=== PATIENT | male | born 1985 | race American Indian/Alaskan Native ===

== ENCOUNTER 2018-04-22 16:17 | Inpatient (IN) | payer SELFPAY ==
[2018-04-22 13:47] LABS: Basophils # (Auto) 0.1 K/mm3 (0.0-0.1); Basophils % (Auto) 0.6 % (0.0-1.8); Eosinophils % (Auto) 0.1 % (0.0-4.3); Hematocrit 39.9 % (35.5-45.6); Hemoglobin 13.1 gm/dl (11.8-15.2); Lymphocytes # (Auto) 1.5 K/mm3 (1.2-5.4); Lymphocytes % (Auto) 11.6 % (13.4-35.0); Mean Corpuscular HGB Conc 33 % (32-34); Mean Corpuscular Hemoglobin 32 pg (28-32); Mean Corpuscular Volume 96 fl (84-94); Monocytes # (Auto) 0.6 K/mm3 (0.0-0.8); Monocytes % (Auto) 4.5 % (0.0-7.3); Platelet Count 239 K/mm3 (140-440); Red Blood Count 4.16 M/mm3 (3.65-5.03); Red Cell Distribution Width 13.3 % (13.2-15.2)
[2018-04-22 14:06] LABS: BUN/Creatinine Ratio 13; Blood Urea Nitrogen 10 mg/dL (9-20); Calcium 8.8 mg/dL (8.4-10.2); Hemolysis Index 42; Lipase 24 units/L (13-60)
[2018-04-22 14:08] LABS: Alanine Aminotransferase 11 units/L (7-56); Albumin 3.8 g/dL (3.9-5)
[2018-04-22 14:13] LABS: Bilirubin,Direct < 0.2 mg/dL (0-0.2)
--- NOTE | 2018-04-22 14:43 | Emergency Department Report ---
ED Abdominal Pain HPI - General Chief Complaint: Abdominal Pain Stated Complaint: ABDOMINAL PAIN Time Seen by Provider: 04/22/18 12:25 Source: EMS Mode of arrival: Wheelchair Limitations: No Limitations - History of Present Illness Initial Comments: 32-year-old male past medical history? IBS presents with acute onset of epigastric pain this morning with associated nausea and vomiting. Patient is in severe distress states he has severe abdominal pain and has vomited more than 6 times since this morning. Accompanied by girlfriend at bedside. Awake alert and oriented 3. Patient is verbally agitated. MD Complaint: abdominal pain -: This morning Location: periumbilical Migration to: periumbilical Severity scale (0 -10): 6 Quality: aching, sharp Consistency: constant Associated Symptoms: nausea, vomiting - Related Data Allergies Allergy/AdvReac Type Severity Reaction Status Date / Time No Known Allergies Allergy Unverified 04/22/18 12:14 ED Review of Systems ROS: Stated complaint: ABDOMINAL PAIN Other details as noted in HPI Constitutional: denies: chills, fever Eyes: denies: eye pain, eye discharge, vision change ENT: denies: ear pain, throat pain Respiratory: denies: cough, shortness of breath, wheezing Cardiovascular: denies: chest pain, palpitations Endocrine: no symptoms reported Gastrointestinal: abdominal pain, nausea. denies: diarrhea Genitourinary: denies: urgency, dysuria Musculoskeletal: denies: back pain, joint swelling, arthralgia Skin: denies: rash, lesions Neurological: denies: headache, weakness, paresthesias Psychiatric: denies: anxiety, depression Hematological/Lymphatic: denies: easy bleeding, easy bruising ED Past Medical Hx - Past Medical History Hx Asthma: Yes - Surgical History Past Surgical History?: No - Social History Smoking Status: Current Every Day Smoker Substance Use Type: None ED Physical Exam - General Limitations: No Limitations General appearance: alert, in no apparent distress - Head Head exam: Present: atraumatic, normocephalic - Eye Eye exam: Present: normal appearance, PERRL, EOMI - ENT ENT exam: Present: mucous membranes moist - Neck Neck exam: Present: normal inspection - Respiratory Respiratory exam: Present: normal lung sounds bilaterally. Absent: respiratory distress - Cardiovascular Cardiovascular Exam: Present: regular rate, normal rhythm. Absent: systolic murmur, diastolic murmur, rubs, gallop - GI/Abdominal GI/Abdominal exam: Present: tenderness, guarding, rebound, rigid, normal bowel sounds - Rectal Rectal exam: Present: deferred - Extremities Exam Extremities exam: Present: normal inspection - Back Exam Back exam: Present: normal inspection - Neurological Exam Neurological exam: Present: alert, oriented X3 - Psychiatric Psychiatric exam: Present: normal affect, normal mood - Skin Skin exam: Present: warm, dry, intact, normal color. Absent: rash ED Course Vital Signs 04/22/18 04/22/18 12:11 14:14 Temperature 98 F Pulse Rate 64 Respiratory 20 16 Rate Blood Pressure 117/69 O2 Sat by Pulse 96 Oximetry ED Medical Decision Making - Lab Data Result diagrams: 04/22/18 12:53 04/22/18 12:53 - Medical Decision Making A/P: Acute abdomen, small bowel obstruction 1-is discussed with on-call surgeon Dr. Lindsey and ED attending Dr. Gonzalez 2-nothing by mouth 3-IV analgesia IV fluid IV antiemetics 4- patient to be admitted Critical care attestation.: If time is entered above; I have spent that time in minutes in the direct care of this critically ill patient, excluding procedure time. ED Disposition Clinical Impression: Small bowel obstruction Disposition: 09 OP ADMIT IP TO THIS HOSP Is pt being admited?: No Does the pt Need Aspirin: No Condition: Stable Referrals: PRIMARY CARE, [Primary Care Provider] - 3-5 Days
--- NOTE | 2018-04-22 15:14 | Cat Scan Report ---
CT ABDOMEN PELVIS WITH CONTRAST: HISTORY: Severe abdominal pain. COMPARISON: none. TECHNIQUE: Helical CT in 1.25mm intervals following IV contrast. Sagittal and coronal reconstructions. FINDINGS: Lung bases: Normal. Liver: Normal. Biliary system: Normal. Pancreas: Normal. Spleen: Normal. Kidneys/ureters/bladder: Normal. Adrenal glands: Normal. Aorta: Normal. Intestines: No oral contrast was administered which limits this exam. There is suggestion of 1 or 2 loops of dilated small bowel in the left lower quadrant and pelvis. These small bowel loops measure up to 3.5 cm in diameter. The remaining small bowel loops and colon are decompressed and unremarkable. This pattern is concerning for a closed loop small bowel obstruction. There is no evidence for significant small bowel wall thickening or pneumatosis. No free air is identified. Appendix: Normal. Pelvic viscera: Small to medium pelvic ascites. Ascites: Small to medium pelvic ascites. Adenopathy: None. Musculoskeletal: Normal. IMPRESSION: Findings concerning for a closed loop small bowel obstruction as outlined above. Recommend consultation with the surgeon. These findings were discussed with Vance Vieira in the emergency department at 1500 hrs.
--- NOTE | 2018-04-22 15:15 | Emergency Department Report ---
Blank Doc - Documentation Documentation: I performed a [id number] evaluation with this patient. I agree with the mentation in the history and physical by the MELODIE. Patient's arrives and substantial amount of pain mostly in the epigastrium. Patient had lab work and CT shows a small bowel obstruction. Patient will be admitted to the hospital at this time.
--- NOTE | 2018-04-22 15:57 | History and Physical Report ---
ADMITTING DIAGNOSIS: Acute abdomen, rule out closed loop obstruction. HISTORY OF PRESENT ILLNESS: The patient is a 32-year-old gentleman, who presented to the Emergency Room with recent onset of nausea, vomiting and what he describes as " abdominal pain. PAST MEDICAL HISTORY: Pertinent for asthma. PAST SURGICAL HISTORY: Negative. ALLERGIES: No known allergies. MEDICATIONS: No medications. FAMILY HISTORY: Negative. SOCIAL HISTORY: Smokes a pack a day for approximately 21 years. Also, has been smoking marijuana since the age of 12 and takes codeine. The patient states he survey years in assisted and has just recently was released. PHYSICAL EXAMINATION: VITAL SIGNS: Shows the patient to be afebrile with a temperature of 98, blood pressure 117/69, pulse of 64, respirations 20. HEENT: Pupils are equal and reactive to light and accommodation. Sclerae nonicteric. NECK: Supple, no thyromegaly or adenopathy. CHEST: Lungs clear to auscultation and percussion. HEART: Normal sinus rhythm. No gross murmurs. ABDOMEN: Examination of the abdomen reveals to be distended and severely tender. There is rebound and guarding noted. Bowel sounds are absent. EXTREMITIES: Show full range of motion, no edema or cyanosis. NEUROLOGIC: Grossly within normal limits. LABORATORY DATA: Lab work at present includes CBC, which shows a white count of 13.2, H and H is 13 and 39. Lactic acid is noted to be elevated at 2.4. Electrolytes are essentially within normal limits. Lipase is normal at 24. LFTs are also normal. A CT scan of the abdomen has been performed, which I have reviewed with the radiologist. Findings are consistent with a closed loop small-bowel obstruction. IMPRESSION: At this time is that of a 32-year-old gentleman with severe abdominal pain, rule out closed loop obstruction. PLAN: To proceed with emergency exploratory laparotomy, possible bowel resection. Risk indication and complications have been reviewed with the patient, who understands and signed his consent. JOB# [id number] FP/NTS
[~2018-04-22 16:17] MED LIST: BENADRYL IV ONE; DILAUDID IV ONE; DIPRIVAN 10 MG/ML IV ONE; LACTATED RINGERS 1,000 ML IV ONE; NACL 0.9% 1000 ML 1,000 ML IV ONE; NACL 0.9% IR ONE; QUELICIN ONE; SUBLIMAZE ONE; XYLOCAINE MPF 2% ONE; ZEMURON IV ONE; ZOFRAN IV ONE; ZOSYN/NS 4.5GM/100ML 4.5 GM/100 ML VIAL IV SCH
--- NOTE | 2018-04-22 16:34 | Anesthesia Consultation ---
Anesthesia Consult and Med Hx Date of service: 04/22/18 - Airway Anesthetic Teeth Evaluation: Good ROM Head & Neck: Adequate Mental/Hyoid Distance: Adequate Mallampati Class: Class II Intubation Access Assessment: Probably Good - Pulmonary Exam CTA: Yes - Cardiac Exam Cardiac Exam: RRR - Pre-Operative Health Status ASA Pre-Surgery Classification: ASA2 Proposed Anesthetic Plan: General - Pulmonary Hx Smoking: Yes (Admits to every day use) Hx Asthma: Yes (last inhaler ~1 month ago) - Other Systems Hx Substance Use: Yes (Smokes marijuana. Admits to codeine use for migranes.) - Additional Comments Anesthesia Medical History Comments: No previous anesthesia. Denies family hx of complications.
--- NOTE | 2018-04-22 16:35 | Anesthesia Day of Surgery ---
Anesthesia Day of Surgery - Day of Surgery Patient Examined: Yes Patient H&P Reviewed: Yes Patient is NPO: Yes
[2018-04-22] MEDS ORDERED: VERSED IV PRN (16:36)
[2018-04-22 16:51] LABS: Amphetamine Screen,Urine PRESUMPTIVE NEGATIVE; Benzodiazepines Screen,Urine PRESUMPTIVE NEGATIVE; Cocaine Screen,Urine PRESUMPTIVE NEGATIVE; Methadone Screen,Urine PRESUMPTIVE NEGATIVE; Opiate Screen,Urine PRESUMPTIVE NEGATIVE
[2018-04-22 17:00] LABS: Bilirubin,Urine NEG (Negative); Blood,Urine NEG (Negative); Color,Urine Yellow (Yellow); Mucus,Urine FEW /HPF; Protein,Urine <15 mg/dL mg/dL (Negative); Urobilinogen,Urine < 2.0 mg/dL (<2.0)
[2018-04-22] MEDS ORDERED: PEPCID IV NR (17:00)
[2018-04-22 17:10] LABS: Cannabinoid Screen,Urine PRESUMPTIVE POSITIVE
[2018-04-22] MEDS ORDERED: NACL 0.9% 1000 ML 1,000 ML ONE (17:19)
[2018-04-22] MEDS ORDERED: ZOFRAN ONE (17:36)
[2018-04-22] MEDS ORDERED: ROBINUL ONE ×2 (17:46→18:13)
[2018-04-22] MEDS ORDERED: BLOXIVERZ ONE ×2 (17:46→18:13)
--- NOTE | 2018-04-22 18:25 | Operative Report ---
PREOPERATIVE DIAGNOSIS: Rule out closed loop small-bowel obstruction. 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 PROCEDURE: Emergency exploratory laparotomy, lysis of offending band causing obstruction. SURGEON: Frank Lindsey MD. ANESTHESIA: General. ESTIMATED BLOOD LOSS: Minimal. DRAINS: None. COMPLICATIONS: None. DESCRIPTION OF PROCEDURE: The patient was taken to the operating room, prepped and draped in usual fashion. A midline incision was made and abdomen entered. Upon entrance into the abdomen, the proximal bowel was noted to be collapsed. The bowel continued to be run until the mid portion of the small bowel was noted to be looped secondary to an offending band and dissection of the bowel was all dilated, but fortunately not ischemic or compromised. The band was lysed and the bowel untwisted. The rest of the bowel was then followed distally, which was also collapsed down to the cecum. The entire abdomen was then irrigated copiously and dried. Checked for hemostasis and noted to be dry. The small bowel was again run in its entirety from ligament of Treitz down to the cecum. No other sources of obstruction or pathology were noted. NG tube was palpated within the gastric lumen and left in place. The fascia was then closed with interrupted #1 Vicryl suture. Subcutaneous tissues irrigated and skin closed with virgie. The patient tolerated the procedure well and left OR in stable condition. JOB# [id number] SHI/NIKI
[2018-04-22] MEDS: DILAUDID IV PRN ×4 (18:50→20:47)
[2018-04-22] MEDS: D5W/0.45% NACL/KCL 30 MEQ 30 MEQ/1,000 ML BAG IV SCH (19:41)
[2018-04-23] MEDS: MORPHINE IV PRN ×4 (04:31→19:37)
[2018-04-23] MEDS: PEPCID IV SCH ×3 (06:25→21:42)
[2018-04-23 06:50] LABS: Basophils % (Auto) 0.2 % (0.0-1.8); Eosinophils % (Auto) 0.1 % (0.0-4.3); Hematocrit 42.9 % (35.5-45.6); Hemoglobin 14.2 gm/dl (11.8-15.2); Lymphocytes # (Auto) 1.1 K/mm3 (1.2-5.4); Lymphocytes % (Auto) 7.3 % (13.4-35.0); Mean Corpuscular HGB Conc 33 % (32-34); Mean Corpuscular Hemoglobin 32 pg (28-32); Mean Corpuscular Volume 96 fl (84-94); Monocytes % (Auto) 6.4 % (0.0-7.3); Platelet Count 238 K/mm3 (140-440); Red Blood Count 4.47 M/mm3 (3.65-5.03); Red Cell Distribution Width 13.3 % (13.2-15.2)
[2018-04-23 07:14] LABS: BUN/Creatinine Ratio 6; Blood Urea Nitrogen 5 mg/dL (9-20); Calcium 9.1 mg/dL (8.4-10.2); Hemolysis Index 19
[2018-04-23] MEDS ORDERED: PROVENTIL IH PRN (11:20)
--- NOTE | 2018-04-23 11:21 | Consultation ---
History of Present Illness - Reason for Consult Consult date: 04/23/18 Asthma Requesting physician: SAIRA LINDSEY - History of Present Illness Patient is 32 yo with history of asthma, substance abuse. patient presented with nausea, vomiting, abdominal pain. He was diagnosed with bowel obstruction. He had exploratory lap surgery for midgut closed loop obstruction yesterday, , and hospitalist consulted for medical management of asthma and substance abuse. He is post-op. He complains of mild abdominal pain. No shortness of breath currently. No chest pain, no fever. Past History Past Medical History: other (asthma) Past Surgical History: bowel surgery Social history: single, lives with family, smoking (1 pack a day), full code, other (Marijuana use). denies: alcohol abuse Family history: cancer Medications and Allergies Allergies Allergy/AdvReac Type Severity Reaction Status Date / Time No Known Allergies Allergy Verified 04/22/18 16:53 Home Medications Medication Instructions Recorded Confirmed Last Taken Type ALBUTEROL Inhaler [Proair] 2 puff IH QID PRN 04/22/18 04/22/18 1 Month Ago History ~03/22/18 Active Meds: Active Medications Albuterol (Proventil) 2.5 mg IH Q4HRT PRN PRN Reason: Shortness Of Breath Famotidine (Pepcid) 20 mg IV BID KIM Last Admin: 04/23/18 10:59 Dose: 20 mg Piperacillin Sod/Tazobactam Sod (Zosyn/Ns 4.5gm/100ml) 4.5 gm in 100 mls @ 200 mls/hr IV ONCE KIM Last Admin: 04/22/18 15:44 Dose: 200 mls/hr Sodium Chloride (Nacl 0.9% 1000 Ml) 1,000 mls @ 42 mls/hr IV DIRECT KIM Potassium Chloride/Dextrose/Sod Cl (D5w/0.45% Nacl/Kcl 30 Meq) 30 meq in 1,000 mls @ 125 mls/hr IV DIRECT KIM Last Admin: 04/22/18 19:41 Dose: 125 mls/hr Morphine Sulfate (Morphine) 4 mg IV Q3H PRN PRN Reason: Pain, Moderate (4-6) Stop: 04/26/18 17:50 Last Admin: 04/23/18 10:58 Dose: 4 mg Ondansetron HCl (Zofran) 4 mg IV Q4H PRN PRN Reason: N/V unrelieved by Reglan Review of Systems All systems: negative (No fever, no headache,no urinary symptoms. All other systems reviewed and are negative) Exam - Physical Exam Narrative exam: Gen : Not in acute distress, lying in bed HEENT:Normocephalic, atraumatic Neck: supple, No JVD Lungs:Clear to auscultation bilaterally,no crackles, no wheeze Heart :S1 and S2 reg, no murmurs, rubs or gallop Abd:soft, tender, surgical wound covered by abdominal binder, bowel sounds Ext: No edema, no clubbing, no cyanosis Neuro: Awake,alert,oriented x 3, no focal signs - Constitutional Vitals: Temp Pulse Resp BP Pulse Ox 99.3 F 55 L 17 114/74 100 04/23/18 07:30 04/23/18 07:30 04/23/18 10:00 04/23/18 07:30 04/23/18 07:30 Results - Labs CBC & Chem 7: 04/25/18 05:13 04/25/18 05:13 Labs: Abnormal lab results 04/22/18 04/22/18 04/22/18 Range/Units 12:53 12:53 12:53 WBC 13.2 H (4.5-11.0) K/mm3 MCV 96 H (84-94) fl Lymph % (Auto) 11.6 L (13.4-35.0) % Lymph # (1.2-5.4) K/mm3 [place] # (0.0-0.8) K/mm3 Seg Neutrophils % 83.2 H (40.0-70.0) % Seg Neutrophils # 11.0 H (1.8-7.7) K/mm3 Chloride 108.1 H (98-107) mmol/L BUN (9-20) mg/dL Glucose (75-100) mg/dL Lactic Acid 2.40 H* (0.7-2.0) mmol/L Albumin (3.9-5) g/dL Ur Specific [place] (1.003-1.030) 04/22/18 04/22/18 04/23/18 Range/Units 12:53 16:27 06:19 WBC 15.8 H (4.5-11.0) K/mm3 MCV 96 H (84-94) fl Lymph % (Auto) 7.3 L (13.4-35.0) % Lymph # 1.1 L (1.2-5.4) K/mm3 [place] # 1.0 H (0.0-0.8) K/mm3 Seg Neutrophils % 86.0 H (40.0-70.0) % Seg Neutrophils # 13.6 H (1.8-7.7) K/mm3 Chloride (98-107) mmol/L BUN (9-20) mg/dL Glucose (75-100) mg/dL Lactic Acid (0.7-2.0) mmol/L Albumin 3.8 L (3.9-5) g/dL Ur Specific [place] 1.047 H (1.003-1.030) 04/23/18 Range/Units 06:19 WBC (4.5-11.0) K/mm3 MCV (84-94) fl Lymph % (Auto) (13.4-35.0) % Lymph # (1.2-5.4) K/mm3 [place] # (0.0-0.8) K/mm3 Seg Neutrophils % (40.0-70.0) % Seg Neutrophils # (1.8-7.7) K/mm3 Chloride (98-107) mmol/L BUN 5 L (9-20) mg/dL Glucose 101 H (75-100) mg/dL Lactic Acid (0.7-2.0) mmol/L Albumin (3.9-5) g/dL Ur Specific [place] (1.003-1.030) Assessment and Plan Bowel obstruction s/p Exploratory laparotomy and lysis of offending band for midgut closed loop obstruction. Managed by Surgeon Asthma. This is stable currently Will give Albuterol prn Tobacco use. Nicotine patch if needed Substance abuse-Marijuana. I counseled him on importance of quitting Full code status Dr. Lindsey, thanks for consulting us
--- NOTE | 2018-04-23 13:07 | Progress Note ---
Assessment and Plan POD #1 Pt feeling well. c/o incisional pain Abd soft, dressings dry stable ambulation Selected Entries 04/23/18 11:30 Temperature 99.0 F Pulse Rate 51 L Respiratory 20 Rate Blood Pressure 129/76 [Left] Laboratory Tests 04/23/1818 06:19 06:19 WBC 15.8 H Hgb 14.2 Hct 42.9 Sodium 140 Potassium 4.4 Chloride 102.3 BUN 5 L Creatinine 0.8 Objective Vital Signs - 12hr 04/23/18 04/23/18 04/23/18 04:31 04:34 05:01 Temperature 99.2 F Pulse Rate 75 Respiratory 17 18 17 Rate Respiratory Rate [abd] Blood Pressure 139/63 [Left] O2 Sat by Pulse 100 Oximetry 04/23/18 04/23/18 04/23/18 07:30 10:00 11:28 Temperature 99.3 F Pulse Rate 55 L Respiratory 20 20 Rate Respiratory 17 Rate [abd] Blood Pressure 114/74 [Left] O2 Sat by Pulse 100 Oximetry 04/23/18 11:30 Temperature 99.0 F Pulse Rate 51 L Respiratory 20 Rate Respiratory Rate [abd] Blood Pressure 129/76 [Left] O2 Sat by Pulse 100 Oximetry - Labs 04/23/18 06:19 18 06:19 Diabetes panel 04/22/18 04/22/18 04/23/18 Range/Units 12:53 12:53 06:19 Sodium 144 140 (137-145) mmol/L Potassium 3.7 4.4 (3.6-5.0) mmol/L Chloride 108.1 H 102.3 (98-107) mmol/L Carbon Dioxide 22 26 (22-30) mmol/L BUN 10 5 L (9-20) mg/dL Creatinine 0.8 0.8 (0.8-1.5) mg/dL Glucose 91 101 H (75-100) mg/dL Calcium 8.8 9.1 (8.4-10.2) mg/dL AST 28 (5-40) units/L ALT 11 (7-56) units/L Alkaline Phosphatase 46 (35-129) units/L Total Protein 6.7 (6.3-8.2) g/dL Albumin 3.8 L (3.9-5) g/dL Calcium panel 04/22/18 04/22/1804/23/18 Range/Units 12:53 12:53 06:19 Calcium 8.8 9.1 (8.4-10.2) mg/dL Albumin 3.8 L (3.9-5) g/dL Pituitary panel 04/22/18 04/23/18 Range/Units 12:53 06:19 Sodium 144 140 (137-145) mmol/L Potassium 3.7 4.4 (3.6-5.0) mmol/L Chloride 108.1 H 102.3 (98-107) mmol/L Carbon Dioxide 22 26 (22-30) mmol/L BUN 10 5 L (9-20) mg/dL Creatinine 0.8 0.8 (0.8-1.5) mg/dL Glucose 91 101 H (75-100) mg/dL Calcium 8.8 9.1 (8.4-10.2) mg/dL Adrenal panel 04/22/18 04/22/18 04/23/18 Range/Units 12:53 12:53 06:19 Sodium 144 140 (137-145) mmol/L Potassium 3.7 4.4 (3.6-5.0) mmol/L Chloride 108.1 H 102.3 (98-107) mmol/L Carbon Dioxide 22 26 (22-30) mmol/L BUN 10 5 L (9-20) mg/dL Creatinine 0.8 0.8 (0.8-1.5) mg/dL Glucose 91 101 H (75-100) mg/dL Calcium 8.8 9.1 (8.4-10.2) mg/dL Total Bilirubin 0.20 (0.1-1.2) mg/dL AST 28 (5-40) units/L ALT 11 (7-56) units/L Alkaline Phosphatase 46 (35-129) units/L Total Protein 6.7 (6.3-8.2) g/dL Albumin 3.8 L (3.9-5) g/dL
[2018-04-24] MEDS: MORPHINE IV PRN ×4 (00:28→22:10)
[2018-04-24] MEDS: PEPCID IV SCH ×2 (10:24→22:11)
--- NOTE | 2018-04-24 13:12 | Progress Note ---
Assessment and Plan POD # 2 Pt status quo. "burping" neg flatus Abd soft. dressings dry neg BS stable continue present care Selected Entries 04/24/18 07:44 Temperature 98.6 F Pulse Rate 55 L Respiratory 18 Rate Blood Pressure 130/83 Objective Vital Signs - 12hr 04/24/18 04/24/18 04:59 07:44 Temperature 98.8 F 98.6 F Pulse Rate 61 55 L Respiratory 18 18 Rate Blood Pressure 137/71 130/83 O2 Sat by Pulse 98 100 Oximetry - Labs 04/23/18 06:19 04/23/18 06:19
[2018-04-24] MEDS ORDERED: CEPACOL X STRENGTH MM PRN (16:41)
--- NOTE | 2018-04-24 17:18 | Progress Note ---
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 Managed by Surgeon Asthma. Albuterol prn for shortness of breath Tobacco use. Nicotine patch if needed Substance abuse-Marijuana. I counseled him on importance of quitting Full code status History Interval history: Less abd pain NG tube to suction Hospitalist Physical - Physical exam Narrative exam: Gen : Not in acute distress, lying in bed HEENT:Normocephalic, atraumatic Neck: supple, No JVD Lungs:Clear to auscultation bilaterally,no crackles, no wheeze Heart :S1 and S2 reg, no murmurs, rubs or gallop Abd:soft, tender, surgical wound covered by abdominal binder, few bowel sounds Ext: No edema, no clubbing, no cyanosis Neuro: Awake,alert,oriented x 3, no focal signs - Constitutional Vitals: Temp Pulse Resp BP Pulse Ox 99.2 F 68 18 121/63 100 04/24/18 14:40 04/24/18 14:40 04/24/18 14:40 04/24/18 14:40 04/24/18 14:40 Results - Labs CBC & Chem 7: 04/25/18 05:13 04/25/18 05:13 Labs: Laboratory Last Values WBC 15.8 K/mm3 (4.5-11.0) H 04/23/18 06:19 RBC 4.47 M/mm3 (3.65-5.03) 04/23/18 06:19 Hgb 14.2 gm/dl (11.8-15.2) 04/23/18 06:19 Hct 42.9 % (35.5-45.6) 04/23/18 06:19 MCV 96 fl (84-94) H 04/23/18 06:19 MCH 32 pg (28-32) 04/23/18 06:19 MCHC 33 % (32-34) 04/23/18 06:19 RDW 13.3 % (13.2-15.2) 04/23/18 06:19 Plt Count 238 K/mm3 (140-440) 04/23/18 06:19 Lymph % (Auto) 7.3 % (13.4-35.0) L 04/23/18 06:19 [place] % (Auto) 6.4 % (0.0-7.3) 04/23/18 06:19 Eos % (Auto) 0.1 % (0.0-4.3) 04/23/18 06:19 Baso % (Auto) 0.2 % (0.0-1.8) 04/23/18 06:19 Lymph # 1.1 K/mm3 (1.2-5.4) L 04/23/18 06:19 [place] # 1.0 K/mm3 (0.0-0.8) H 04/23/18 06:19 Eos # 0.0 K/mm3 (0.0-0.4) 04/23/18 06:19 Baso # 0.0 K/mm3 (0.0-0.1) 04/23/18 06:19 Seg Neutrophils % 86.0 % (40.0-70.0) H 04/23/18 06:19 Seg Neutrophils # 13.6 K/mm3 (1.8-7.7) H 04/23/18 06:19 Sodium 140 mmol/L (137-145) 04/23/18 06:19 Potassium 4.4 mmol/L (3.6-5.0) 04/23/18 06:19 Chloride 102.3 mmol/L (98-107) 04/23/18 06:19 Carbon Dioxide 26 mmol/L (22-30) 04/23/18 06:19 Anion Gap 16 mmol/L 04/23/18 06:19 BUN 5 mg/dL (9-20) L 04/23/18 06:19 Creatinine 0.8 mg/dL (0.8-1.5) 04/23/18 06:19 Estimated GFR > 60 ml/min 04/23/18 06:19 BUN/Creatinine Ratio 6 % 04/23/18 06:19 Glucose 101 mg/dL (75-100) H 04/23/18 06:19 Lactic Acid 2.40 mmol/L (0.7-2.0) H* 04/22/18 12:53 Calcium 9.1 mg/dL (8.4-10.2) 04/23/18 06:19 Total Bilirubin 0.20 mg/dL (0.1-1.2) 04/22/18 12:53 Direct Bilirubin < 0.2 mg/dL (0-0.2) 04/22/18 12:53 Indirect Bilirubin 0.0 mg/dL 04/22/18 12:53 AST 28 units/L (5-40) 04/22/18 12:53 ALT 11 units/L (7-56) 04/22/18 12:53 Alkaline Phosphatase 46 units/L (35-129) 04/22/18 12:53 Total Protein 6.7 g/dL (6.3-8.2) 04/22/18 12:53 Albumin 3.8 g/dL (3.9-5) L 04/22/18 12:53 Albumin/Globulin Ratio 1.3 % 04/22/18 12:53 Lipase 24 units/L (13-60) 04/22/18 12:53 Urine Color Yellow (Yellow) 04/22/18 16:27 Urine Turbidity Clear (Clear) 04/22/18 16:27 Urine pH 7.0 (5.0-7.0) 04/22/18 16:27 Ur Specific [place] 1.047 (1.003-1.030) H 04/22/18 16:27 Urine Protein <15 mg/dl mg/dL (Negative) 04/22/18 16:27 Urine Glucose (UA) 50 mg/dL (Negative) 04/22/18 16:27 Urine Ketones Neg mg/dL (Negative) 04/22/18 16:27 Urine Blood Neg (Negative) 04/22/18 16:27 Urine Nitrite Neg (Negative) 04/22/18 16:27 Urine Bilirubin Neg (Negative) 04/22/18 16:27 Urine Urobilinogen < 2.0 mg/dL (<2.0) 04/22/18 16:27 Ur Leukocyte Esterase Neg (Negative) 04/22/18 16:27 Urine WBC (Auto) 2.0 /HPF (0.0-6.0) 04/22/18 16:27 Urine RBC (Auto) 5.0 /HPF (0.0-6.0) 04/22/18 16:27 U Epithel Cells (Auto) < 1.0 /HPF (0-13.0) 04/22/18 16:27 Urine Mucus Few /HPF 04/22/18 16:27 Urine Yeast (Budding) Few /HPF 04/22/18 16:27 Urine Opiates Screen Presumptive negative 04/22/18 16:30 Urine Methadone Screen Presumptive negative 04/22/18 16:30 Ur Barbiturates Screen Presumptive negative 04/22/18 16:30 Ur Phencyclidine Scrn Presumptive negative 04/22/18 16:30 Ur Amphetamines Screen Presumptive negative 04/22/18 16:30 U Benzodiazepines Scrn Presumptive negative 04/22/18 16:30 Urine Cocaine Screen Presumptive negative 04/22/18 16:30 U Marijuana (THC) Screen Presumptive positive 04/22/18 16:30 Drugs of Abuse Note Disclamer 04/22/18 16:30
[2018-04-25] MEDS: D5W/0.45% NACL/KCL 30 MEQ 30 MEQ/1,000 ML BAG IV SCH ×2 (04:58→22:56)
[2018-04-25] MEDS: MORPHINE IV PRN ×4 (05:40→22:52)
[2018-04-25 05:52] LABS: Basophils # (Auto) 0.1 K/mm3 (0.0-0.1); Basophils % (Auto) 0.7 % (0.0-1.8); Eosinophils % (Auto) 0.2 % (0.0-4.3); Hematocrit 44.5 % (35.5-45.6); Lymphocytes # (Auto) 1.7 K/mm3 (1.2-5.4); Lymphocytes % (Auto) 14.7 % (13.4-35.0); Mean Corpuscular HGB Conc 34 % (32-34); Mean Corpuscular Hemoglobin 32 pg (28-32); Mean Corpuscular Volume 95 fl (84-94); Monocytes # (Auto) 1.4 K/mm3 (0.0-0.8); Monocytes % (Auto) 12.2 % (0.0-7.3); Platelet Count 233 K/mm3 (140-440); Red Blood Count 4.68 M/mm3 (3.65-5.03); Red Cell Distribution Width 13.3 % (13.2-15.2)
[2018-04-25 06:19] LABS: Alanine Aminotransferase 12 units/L (7-56); Albumin 4.2 g/dL (3.9-5); BUN/Creatinine Ratio 16; Blood Urea Nitrogen 14 mg/dL (9-20); Calcium 9.7 mg/dL (8.4-10.2); Hemolysis Index 16
[2018-04-25] MEDS: PEPCID IV SCH ×2 (09:51→22:52)
--- NOTE | 2018-04-25 12:11 | Progress Note ---
Assessment and Plan POD # 3 Pt feeling well. neg flatus. ambulating down halls. ng 400 cc last 12 hrs Abd 1+ distention. non tender stable ileus continue present care Selected Entries 04/25/18 11:25 Temperature 98.6 F Pulse Rate 90 Respiratory 20 Rate Blood Pressure 139/81 [Left] Laboratory Tests 04/25/18 04/25/18 05:13 05:13 WBC 11.5 H Hgb 15.0 Hct 44.5 Sodium 139 Potassium 4.2 Chloride 97.1 L Carbon Dioxide 27 BUN 14 Creatinine 0.9 Objective Vital Signs - 12hr 04/25/18 04/25/18 04/25/18 04:59 07:42 11:25 Temperature 99.0 F 98.5 F 98.6 F Pulse Rate 92 H 79 90 Respiratory 16 18 20 Rate Blood Pressure 130/67 Blood Pressure 102/59 139/81 [Left] O2 Sat by Pulse 98 100 100 Oximetry - Labs 04/25/18 05:13 04/25/18 05:13 Diabetes panel 04/25/18 Range/Units 05:13 Sodium 139 (137-145) mmol/L Potassium 4.2 (3.6-5.0) mmol/L Chloride 97.1 L (98-107) mmol/L Carbon Dioxide 27 (22-30) mmol/L BUN 14 (9-20) mg/dL Creatinine 0.9 (0.8-1.5) mg/dL Glucose 97 (75-100) mg/dL Calcium 9.7 (8.4-10.2) mg/dL AST 28 (5-40) units/L ALT 12 (7-56) units/L Alkaline Phosphatase 53 (35-129) units/L Total Protein 7.5 (6.3-8.2) g/dL Albumin 4.2 (3.9-5) g/dL Calcium panel 04/25/18 Range/Units 05:13 Calcium 9.7 (8.4-10.2) mg/dL Albumin 4.2 (3.9-5) g/dL Pituitary panel 04/25/18 Range/Units 05:13 Sodium 139 (137-145) mmol/L Potassium 4.2 (3.6-5.0) mmol/L Chloride 97.1 L (98-107) mmol/L Carbon Dioxide 27 (22-30) mmol/L BUN 14 (9-20) mg/dL Creatinine 0.9 (0.8-1.5) mg/dL Glucose 97 (75-100) mg/dL Calcium 9.7 (8.4-10.2) mg/dL Adrenal panel 04/25/18 Range/Units 05:13 Sodium 139 (137-145) mmol/L Potassium 4.2 (3.6-5.0) mmol/L Chloride 97.1 L (98-107) mmol/L Carbon Dioxide 27 (22-30) mmol/L BUN 14 (9-20) mg/dL Creatinine 0.9 (0.8-1.5) mg/dL Glucose 97 (75-100) mg/dL Calcium 9.7 (8.4-10.2) mg/dL Total Bilirubin 0.70 (0.1-1.2) mg/dL AST 28 (5-40) units/L ALT 12 (7-56) units/L Alkaline Phosphatase 53 (35-129) units/L Total Protein 7.5 (6.3-8.2) g/dL Albumin 4.2 (3.9-5) g/dL
[2018-04-25] MEDS: NACL 0.9% 1000 ML 1,000 ML IV SCH ×2 (13:21→21:00)
--- NOTE | 2018-04-25 17:03 | Progress Note ---
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 Managed by Surgeon Ileus. He is NPO, iv fluids, NG tube Asthma. Albuterol prn for shortness of breath Tobacco use. Nicotine patch if needed Substance abuse-Marijuana. I counseled him on importance of quitting Full code status History Interval history: Less abd pain NG tube to suction, No fever Hospitalist Physical - Physical exam Narrative exam: Gen : Not in acute distress, lying in bed, NG tube HEENT:Normocephalic, atraumatic, NG tube Neck: supple, No JVD Lungs:Clear to auscultation bilaterally,no crackles, no wheeze Heart :S1 and S2 reg, no murmurs, rubs or gallop Abd:soft, tender, surgical wound covered by abdominal binder, few bowel sounds Ext: No edema, no clubbing, no cyanosis Neuro: Awake,alert,oriented x 3, no focal signs - Constitutional Vitals: Temp Pulse Resp BP Pulse Ox 98.6 F 86 20 128/60 100 04/25/18 16:35 04/25/18 16:35 04/25/18 16:35 04/25/18 16:35 04/25/18 16:35 Results - Labs CBC & Chem 7: 04/25/18 05:13 04/25/18 05:13 Labs: Laboratory Last Values WBC 11.5 K/mm3 (4.5-11.0) H 04/25/18 05:13 RBC 4.68 M/mm3 (3.65-5.03) 04/25/18 05:13 Hgb 15.0 gm/dl (11.8-15.2) 04/25/18 05:13 Hct 44.5 % (35.5-45.6) 04/25/18 05:13 MCV 95 fl (84-94) H 04/25/18 05:13 MCH 32 pg (28-32) 04/25/18 05:13 MCHC 34 % (32-34) 04/25/18 05:13 RDW 13.3 % (13.2-15.2) 04/25/18 05:13 Plt Count 233 K/mm3 (140-440) 04/25/18 05:13 Lymph % (Auto) 14.7 % (13.4-35.0) 04/25/18 05:13 [place] % (Auto) 12.2 % (0.0-7.3) H 04/25/18 05:13 Eos % (Auto) 0.2 % (0.0-4.3) 04/25/18 05:13 Baso % (Auto) 0.7 % (0.0-1.8) 04/25/18 05:13 Lymph # 1.7 K/mm3 (1.2-5.4) 04/25/18 05:13 [place] # 1.4 K/mm3 (0.0-0.8) H 04/25/18 05:13 Eos # 0.0 K/mm3 (0.0-0.4) 04/25/18 05:13 Baso # 0.1 K/mm3 (0.0-0.1) 04/25/18 05:13 Seg Neutrophils % 72.2 % (40.0-70.0) H 04/25/18 05:13 Seg Neutrophils # 8.3 K/mm3 (1.8-7.7) H 04/25/18 05:13 Sodium 139 mmol/L (137-145) 04/25/18 05:13 Potassium 4.2 mmol/L (3.6-5.0) 04/25/18 05:13 Chloride 97.1 mmol/L (98-107) L 04/25/18 05:13 Carbon Dioxide 27 mmol/L (22-30) 04/25/18 05:13 Anion Gap 19 mmol/L 04/25/18 05:13 BUN 14 mg/dL (9-20) 04/25/18 05:13 Creatinine 0.9 mg/dL (0.8-1.5) 04/25/18 05:13 Estimated GFR > 60 ml/min 04/25/18 05:13 BUN/Creatinine Ratio 16 % 04/25/18 05:13 Glucose 97 mg/dL (75-100) 04/25/18 05:13 Lactic Acid 2.40 mmol/L (0.7-2.0) H* 04/22/18 12:53 Calcium 9.7 mg/dL (8.4-10.2) 04/25/18 05:13 Total Bilirubin 0.70 mg/dL (0.1-1.2) 04/25/18 05:13 Direct Bilirubin < 0.2 mg/dL (0-0.2) 04/22/18 12:53 Indirect Bilirubin 0.0 mg/dL 04/22/18 12:53 AST 28 units/L (5-40) 04/25/18 05:13 ALT 12 units/L (7-56) 04/25/18 05:13 Alkaline Phosphatase 53 units/L (35-129) 04/25/18 05:13 Total Protein 7.5 g/dL (6.3-8.2) 04/25/18 05:13 Albumin 4.2 g/dL (3.9-5) 04/25/18 05:13 Albumin/Globulin Ratio 1.3 % 04/25/18 05:13 Lipase 24 units/L (13-60) 04/22/18 12:53 Urine Color Yellow (Yellow) 04/22/18 16:27 Urine Turbidity Clear (Clear) 04/22/18 16:27 Urine pH 7.0 (5.0-7.0) 04/22/18 16:27 Ur Specific [place] 1.047 (1.003-1.030) H 04/22/18 16:27 Urine Protein <15 mg/dl mg/dL (Negative) 04/22/18 16:27 Urine Glucose (UA) 50 mg/dL (Negative) 04/22/18 16:27 Urine Ketones Neg mg/dL (Negative) 04/22/18 16:27 Urine Blood Neg (Negative) 04/22/18 16:27 Urine Nitrite Neg (Negative) 04/22/18 16:27 Urine Bilirubin Neg (Negative) 04/22/18 16:27 Urine Urobilinogen < 2.0 mg/dL (<2.0) 04/22/18 16:27 Ur Leukocyte Esterase Neg (Negative) 04/22/18 16:27 Urine WBC (Auto) 2.0 /HPF (0.0-6.0) 04/22/18 16:27 Urine RBC (Auto) 5.0 /HPF (0.0-6.0) 04/22/18 16:27 U Epithel Cells (Auto) < 1.0 /HPF (0-13.0) 04/22/18 16:27 Urine Mucus Few /HPF 04/22/18 16:27 Urine Yeast (Budding) Few /HPF 04/22/18 16:27 Urine Opiates Screen Presumptive negative 04/22/18 16:30 Urine Methadone Screen Presumptive negative 04/22/18 16:30 Ur Barbiturates Screen Presumptive negative 04/22/18 16:30 Ur Phencyclidine Scrn Presumptive negative 04/22/18 16:30 Ur Amphetamines Screen Presumptive negative 04/22/18 16:30 U Benzodiazepines Scrn Presumptive negative 04/22/18 16:30 Urine Cocaine Screen Presumptive negative 04/22/18 16:30 U Marijuana (THC) Screen Presumptive positive 04/22/18 16:30 Drugs of Abuse Note Disclamer 04/22/18 16:30
[2018-04-25] MEDS: ZOFRAN IV PRN (22:52)
[2018-04-26] MEDS: ZOFRAN IV PRN (06:08)
[2018-04-26] MEDS: MORPHINE IV PRN ×4 (06:08→15:47)
[2018-04-26] MEDS: D5W/0.45% NACL/KCL 30 MEQ 30 MEQ/1,000 ML BAG IV SCH (06:47)
[2018-04-26] MEDS: PEPCID IV SCH ×2 (09:44→22:20)
--- NOTE | 2018-04-26 10:59 | Progress Note ---
Assessment and Plan POD # 4 Pt feeling well. still neg flatus. burping. Abd 1+ distended non tender stable prolonged ileus abd series in am continued ambulation Selected Entries 04/26/18 04/26/18 07:00 08:00 Temperature 98.6 F Pulse Rate 68 Respiratory 18 Rate Blood Pressure 113/79 [Left] Objective Vital Signs - 12hr 04/25/18 04/26/18 04/26/18 23:46 06:09 07:00 Temperature 99.0 F 98.8 F 98.8 F Pulse Rate 63 68 68 Respiratory 20 20 20 Rate Blood Pressure 106/55 105/62 Blood Pressure 105/62 [Left] O2 Sat by Pulse 95 98 98 Oximetry 04/26/18 04/26/18 07:19 08:00 Temperature 98.6 F Pulse Rate 91 H 100 H Respiratory 18 Rate Blood Pressure Blood Pressure 113/79 [Left] O2 Sat by Pulse 99 Oximetry - Labs 04/25/18 05:13 04/25/18 05:13
[2018-04-26] MEDS: NACL 0.9% 1000 ML 1,000 ML IV SCH ×2 (12:51→18:55)
[2018-04-26] MEDS: ATIVAN IV PRN (18:55)
--- NOTE | 2018-04-26 23:27 | Progress Note ---
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 Managed by Surgeon, Dr. Rosalia Teixeira. Continue NPO, iv fluids, NG tube Asthma. Continue Albuterol prn for shortness of breath Tobacco use. Nicotine patch if needed Substance abuse-Marijuana. I counseled him on importance of quitting Full code status History Interval history: Less abd pain NG tube to suction, No fever Hospitalist Physical - Physical exam Narrative exam: Gen : Not in acute distress, lying in bed, NG tube HEENT:Normocephalic, atraumatic, NG tube Neck: supple, No JVD Lungs:Clear to auscultation bilaterally,no crackles, no wheeze Heart :S1 and S2 reg, no murmurs, rubs or gallop Abd: soft, tender, surgical wound covered by abdominal binder, few bowel sounds Ext: No edema, no clubbing, no cyanosis Neuro: Awake,alert,oriented x 3, no focal signs - Constitutional Vitals: Temp Pulse Resp BP Pulse Ox 99.1 F 71 18 118/56 99 04/26/18 15:56 04/26/18 15:56 04/26/18 15:56 04/26/18 16:00 04/26/18 15:56 Results - Labs CBC & Chem 7: 04/25/18 05:13 04/25/18 05:13 Labs: Laboratory Last Values WBC 11.5 K/mm3 (4.5-11.0) H 04/25/18 05:13 RBC 4.68 M/mm3 (3.65-5.03) 04/25/18 05:13 Hgb 15.0 gm/dl (11.8-15.2) 04/25/18 05:13 Hct 44.5 % (35.5-45.6) 04/25/18 05:13 MCV 95 fl (84-94) H 04/25/18 05:13 MCH 32 pg (28-32) 04/25/18 05:13 MCHC 34 % (32-34) 04/25/18 05:13 RDW 13.3 % (13.2-15.2) 04/25/18 05:13 Plt Count 233 K/mm3 (140-440) 04/25/18 05:13 Lymph % (Auto) 14.7 % (13.4-35.0) 04/25/18 05:13 [place] % (Auto) 12.2 % (0.0-7.3) H 04/25/18 05:13 Eos % (Auto) 0.2 % (0.0-4.3) 04/25/18 05:13 Baso % (Auto) 0.7 % (0.0-1.8) 04/25/18 05:13 Lymph # 1.7 K/mm3 (1.2-5.4) 04/25/18 05:13 [place] # 1.4 K/mm3 (0.0-0.8) H 04/25/18 05:13 Eos # 0.0 K/mm3 (0.0-0.4) 04/25/18 05:13 Baso # 0.1 K/mm3 (0.0-0.1) 04/25/18 05:13 Seg Neutrophils % 72.2 % (40.0-70.0) H 04/25/18 05:13 Seg Neutrophils # 8.3 K/mm3 (1.8-7.7) H 04/25/18 05:13 Sodium 139 mmol/L (137-145) 04/25/18 05:13 Potassium 4.2 mmol/L (3.6-5.0) 04/25/18 05:13 Chloride 97.1 mmol/L (98-107) L 04/25/18 05:13 Carbon Dioxide 27 mmol/L (22-30) 04/25/18 05:13 Anion Gap 19 mmol/L 04/25/18 05:13 BUN 14 mg/dL (9-20) 04/25/18 05:13 Creatinine 0.9 mg/dL (0.8-1.5) 04/25/18 05:13 Estimated GFR > 60 ml/min 04/25/18 05:13 BUN/Creatinine Ratio 16 % 04/25/18 05:13 Glucose 97 mg/dL (75-100) 04/25/18 05:13 Lactic Acid 2.40 mmol/L (0.7-2.0) H* 04/22/18 12:53 Calcium 9.7 mg/dL (8.4-10.2) 04/25/18 05:13 Total Bilirubin 0.70 mg/dL (0.1-1.2) 04/25/18 05:13 Direct Bilirubin < 0.2 mg/dL (0-0.2) 04/22/18 12:53 Indirect Bilirubin 0.0 mg/dL 04/22/18 12:53 AST 28 units/L (5-40) 04/25/18 05:13 ALT 12 units/L (7-56) 04/25/18 05:13 Alkaline Phosphatase 53 units/L (35-129) 04/25/18 05:13 Total Protein 7.5 g/dL (6.3-8.2) 04/25/18 05:13 Albumin 4.2 g/dL (3.9-5) 04/25/18 05:13 Albumin/Globulin Ratio 1.3 % 04/25/18 05:13 Lipase 24 units/L (13-60) 04/22/18 12:53 Urine Color Yellow (Yellow) 04/22/18 16:27 Urine Turbidity Clear (Clear) 04/22/18 16:27 Urine pH 7.0 (5.0-7.0) 04/22/18 16:27 Ur Specific [place] 1.047 (1.003-1.030) H 04/22/18 16:27 Urine Protein <15 mg/dl mg/dL (Negative) 04/22/18 16:27 Urine Glucose (UA) 50 mg/dL (Negative) 04/22/18 16:27 Urine Ketones Neg mg/dL (Negative) 04/22/18 16:27 Urine Blood Neg (Negative) 04/22/18 16:27 Urine Nitrite Neg (Negative) 04/22/18 16:27 Urine Bilirubin Neg (Negative) 04/22/18 16:27 Urine Urobilinogen < 2.0 mg/dL (<2.0) 04/22/18 16:27 Ur Leukocyte Esterase Neg (Negative) 04/22/18 16:27 Urine WBC (Auto) 2.0 /HPF (0.0-6.0) 04/22/18 16:27 Urine RBC (Auto) 5.0 /HPF (0.0-6.0) 04/22/18 16:27 U Epithel Cells (Auto) < 1.0 /HPF (0-13.0) 04/22/18 16:27 Urine Mucus Few /HPF 06/19/18 16:27 Urine Yeast (Budding) Few /HPF 04/22/18 16:27 Urine Opiates Screen Presumptive negative 04/22/18 16:30 Urine Methadone Screen Presumptive negative 04/22/18 16:30 Ur Barbiturates Screen Presumptive negative 04/22/18 16:30 Ur Phencyclidine Scrn Presumptive negative 04/22/18 16:30 Ur Amphetamines Screen Presumptive negative 04/22/18 16:30 U Benzodiazepines Scrn Presumptive negative 04/22/18 16:30 Urine Cocaine Screen Presumptive negative 04/22/18 16:30 U Marijuana (THC) Screen Presumptive positive 04/22/18 16:30 Drugs of Abuse Note Disclamer 04/22/18 16:30
[2018-04-27] MEDS: ATIVAN IV PRN ×4 (02:35→22:40)
[2018-04-27] MEDS: ZOFRAN IV PRN ×2 (07:31→22:41)
[2018-04-27] MEDS: PEPCID IV SCH ×3 (07:31→22:41)
--- NOTE | 2018-04-27 13:58 | Progress Note ---
Assessment and Plan POD # 5 Pt apparently has been uncompliant and is drinking. still neg flatus Abd softer. incision clean and dry stable will keep ng off suction today abd series in am Selected Entries 04/27/18 11:56 Temperature 97.9 F Pulse Rate 84 Respiratory 18 Rate Blood Pressure 104/56 Objective Vital Signs - 12hr 04/27/18 04/27/18 07:34 11:56 Temperature 98.2 F 97.9 F Pulse Rate 87 84 Respiratory 18 18 Rate Blood Pressure 124/70 104/56 O2 Sat by Pulse 99 98 Oximetry - Labs 04/25/18 05:13 04/25/18 05:13
--- NOTE | 2018-04-27 14:07 | Progress Note ---
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 Managed by Surgeon, Dr. Rosalia Teixeira. Has not had flaus or bowel movement yet. Continuie NPO, IV fluids, NG tube to suction Asthma. Continue Albuterol prn for shortness of breath Tobacco use. Nicotine patch if needed Substance abuse-Marijuana. I counseled him on importance of quitting Full code status History Interval history: Less abd pain NG tube to suction, No fever Has not passed flatus Has not have a bowel movement Hospitalist Physical - Physical exam Narrative exam: Gen : Not in acute distress, lying in bed, NG tube HEENT:Normocephalic, atraumatic, NG tube Neck: supple, No JVD Lungs:Clear to auscultation bilaterally,no crackles, no wheeze Heart :S1 and S2 reg, no murmurs, rubs or gallop Abd: soft, tender, surgical wound covered by abdominal binder, few bowel sounds Ext: No edema, no clubbing, no cyanosis Neuro: Awake,alert,oriented x 3, no focal signs - Constitutional Vitals: Temp Pulse Resp BP Pulse Ox 97.9 F 84 18 104/56 98 04/27/18 11:56 04/27/18 11:56 04/27/18 11:56 04/27/18 11:56 04/27/18 11:56 Results - Labs CBC & Chem 7: 04/25/18 05:13 04/25/18 05:13 Labs: Laboratory Last Values WBC 11.5 K/mm3 (4.5-11.0) H 04/25/18 05:13 RBC 4.68 M/mm3 (3.65-5.03) 04/25/18 05:13 Hgb 15.0 gm/dl (11.8-15.2) 04/25/18 05:13 Hct 44.5 % (35.5-45.6) 04/25/18 05:13 MCV 95 fl (84-94) H 04/25/18 05:13 MCH 32 pg (28-32) 04/25/18 05:13 MCHC 34 % (32-34) 04/25/18 05:13 RDW 13.3 % (13.2-15.2) 04/25/18 05:13 Plt Count 233 K/mm3 (140-440) 04/25/18 05:13 Lymph % (Auto) 14.7 % (13.4-35.0) 04/25/18 05:13 [place] % (Auto) 12.2 % (0.0-7.3) H 04/25/18 05:13 Eos % (Auto) 0.2 % (0.0-4.3) 04/25/18 05:13 Baso % (Auto) 0.7 % (0.0-1.8) 04/25/18 05:13 Lymph # 1.7 K/mm3 (1.2-5.4) 04/25/18 05:13 [place] # 1.4 K/mm3 (0.0-0.8) H 04/25/18 05:13 Eos # 0.0 K/mm3 (0.0-0.4) 04/25/18 05:13 Baso # 0.1 K/mm3 (0.0-0.1) 04/25/18 05:13 Seg Neutrophils % 72.2 % (40.0-70.0) H 04/25/18 05:13 Seg Neutrophils # 8.3 K/mm3 (1.8-7.7) H 04/25/18 05:13 Sodium 139 mmol/L (137-145) 04/25/18 05:13 Potassium 4.2 mmol/L (3.6-5.0) 04/25/18 05:13 Chloride 97.1 mmol/L (98-107) L 04/25/18 05:13 Carbon Dioxide 27 mmol/L (22-30) 04/25/18 05:13 Anion Gap 19 mmol/L 04/25/18 05:13 BUN 14 mg/dL (9-20) 04/25/18 05:13 Creatinine 0.9 mg/dL (0.8-1.5) 04/25/18 05:13 Estimated GFR > 60 ml/min 04/25/18 05:13 BUN/Creatinine Ratio 16 % 04/25/18 05:13 Glucose 97 mg/dL (75-100) 04/25/18 05:13 Lactic Acid 2.40 mmol/L (0.7-2.0) H* 04/22/18 12:53 Calcium 9.7 mg/dL (8.4-10.2) 04/25/18 05:13 Total Bilirubin 0.70 mg/dL (0.1-1.2) 04/25/18 05:13 Direct Bilirubin < 0.2 mg/dL (0-0.2) 04/22/18 12:53 Indirect Bilirubin 0.0 mg/dL 04/22/18 12:53 AST 28 units/L (5-40) 04/25/18 05:13 ALT 12 units/L (7-56) 04/25/18 05:13 Alkaline Phosphatase 53 units/L (35-129) 04/25/18 05:13 Total Protein 7.5 g/dL (6.3-8.2) 04/25/18 05:13 Albumin 4.2 g/dL (3.9-5) 04/25/18 05:13 Albumin/Globulin Ratio 1.3 % 04/25/18 05:13 Lipase 24 units/L (13-60) 04/22/18 12:53 Urine Color Yellow (Yellow) 04/22/18 16:27 Urine Turbidity Clear (Clear) 04/22/18 16:27 Urine pH 7.0 (5.0-7.0) 04/22/18 16:27 Ur Specific [place] 1.047 (1.003-1.030) H 04/22/18 16:27 Urine Protein <15 mg/dl mg/dL (Negative) 04/22/18 16:27 Urine Glucose (UA) 50 mg/dL (Negative) 04/22/18 16:27 Urine Ketones Neg mg/dL (Negative) 04/22/18 16:27 Urine Blood Neg (Negative) 04/22/18 16:27 Urine Nitrite Neg (Negative) 04/22/18 16:27 Urine Bilirubin Neg (Negative) 04/22/18 16:27 Urine Urobilinogen < 2.0 mg/dL (<2.0) 04/22/18 16:27 Ur Leukocyte Esterase Neg (Negative) 04/22/18 16:27 Urine WBC (Auto) 2.0 /HPF (0.0-6.0) 04/22/18 16:27 Urine RBC (Auto) 5.0 /HPF (0.0-6.0) 04/22/18 16:27 U Epithel Cells (Auto) < 1.0 /HPF (0-13.0) 04/22/18 16:27 Urine Mucus Few /HPF 04/22/18 16:27 Urine Yeast (Budding) Few /HPF 04/22/18 16:27 Urine Opiates Screen Presumptive negative 04/22/18 16:30 Urine Methadone Screen Presumptive negative 04/22/18 16:30 Ur Barbiturates Screen Presumptive negative 04/22/18 16:30 Ur Phencyclidine Scrn Presumptive negative 04/22/18 16:30 Ur Amphetamines Screen Presumptive negative 04/22/18 16:30 U Benzodiazepines Scrn Presumptive negative 04/22/18 16:30 Urine Cocaine Screen Presumptive negative 04/22/18 16:30 U Marijuana (THC) Screen Presumptive positive 04/22/18 16:30 Drugs of Abuse Note Disclamer 04/22/18 16:30
[2018-04-28 00:52] VITALS: BP 125/66
== END 2018-04-28 01:05 | disposition left against medical advice (07) | DRG 337 ==
LOC: OR 16:17 → EDSTATUS 17:10 → 3A 17:51 → 3B-SURG 20:24
PROVIDERS: ADMIT Surgery; ATTEND Internal Medicine
PROC: 0DN80ZZ Release Small Intestine, Open Approach (ICD-10-PCS; principal; 2018-04-22)
DX: K56.609 Unspecified intestinal obstruction, unspecified as to partial versus complete obstruction (principal); F17.210 Nicotine dependence, cigarettes, uncomplicated; J45.909 Unspecified asthma, uncomplicated; F12.10 Cannabis abuse, uncomplicated; K56.2 Volvulus; K56.7 Ileus, unspecified; G43.909 Migraine, unspecified, not intractable, without status migrainosus; Z80.9 Family history of malignant neoplasm, unspecified; Z71.51 Drug abuse counseling and surveillance of drug abuser
CPT/HCPCS: 36415; 74177; 80048; 80053; 80074; 80307; 81001; 82140; 83690; 85025; J0330; J1170; J1200; J2060; J2250; J2270; J2405; J2543; J2704; J2710; J3010; J7030; J7120; Q9967

== ENCOUNTER 2018-04-28 03:50 | Inpatient (IN) | payer SELFPAY ==
[2018-04-28] MEDS ORDERED: NACL 0.9% 1000 ML 1,000 ML IV ONE ×2 (04:23→06:51)
[2018-04-28 05:01] LABS: Basophils # (Auto) 0.1 K/mm3 (0.0-0.1); Basophils % (Auto) 0.7 % (0.0-1.8); Eosinophils # (Auto) 0.1 K/mm3 (0.0-0.4); Eosinophils % (Auto) 0.9 % (0.0-4.3); Hematocrit 41.2 % (35.5-45.6); Lymphocytes # (Auto) 1.6 K/mm3 (1.2-5.4); Lymphocytes % (Auto) 14.3 % (13.4-35.0); Mean Corpuscular HGB Conc 34 % (32-34); Mean Corpuscular Hemoglobin 32 pg (28-32); Mean Corpuscular Volume 93 fl (84-94); Monocytes # (Auto) 1.1 K/mm3 (0.0-0.8); Platelet Count 270 K/mm3 (140-440); Red Blood Count 4.42 M/mm3 (3.65-5.03); Red Cell Distribution Width 12.4 % (13.2-15.2)
[2018-04-28 05:40] LABS: Alanine Aminotransferase 10 units/L (7-56); Albumin 4.3 g/dL (3.9-5); BUN/Creatinine Ratio 21; Blood Urea Nitrogen 19 mg/dL (9-20); Calcium 9.6 mg/dL (8.4-10.2); Hemolysis Index 8
[2018-04-28] MEDS ORDERED: ZOFRAN IV ONE (06:51)
[2018-04-28] MEDS ORDERED: SUBLIMAZE IV ONE ×2 (06:51→08:49)
--- NOTE | 2018-04-28 06:57 | Emergency Department Report ---
HPI - General Chief Complaint: Abdominal Pain Time Seen by Provider: 04/28/18 06:39 - HPI HPI: Room 10 The patient is 32-year-old male presented a chief complaint of abdominal pain. The patient was admitted to this hospital and underwent an emergency exploratory laparotomy for correction of mid good closed loop destruction secondary to a band 04/22/[address] Lindsey. The patient states she left the hospital last night AGAINST MEDICAL ADVICE because he did not like the treatment is receiving from his nurse. Patient states as he was walking out of the hospital he thought he felt something tear at his surgical site. The patient states he returns to the hospital because he is having significant pain and regrets leaving. The patient states he has had 3 episodes of flatus last night and has not yet had a bowel movement. Patient denies any fever. Patient complains of tenderness of the left upper extremity at his former IV site. Location: Abdomen, left upper extremity Duration: [See above] Quality: Pain Severity: 06/13 Modifying factors: [see above] Context: [see above] Mode of transportation: Unknown ED Past Medical Hx - Past Medical History Previous Medical History?: Yes Hx Asthma: Yes - Surgical History Past Surgical History?: Yes Additional Surgical History: face. Emergency exploratory laparotomy for closed loop intestinal obstruction - Family History Family history: no significant - Social History Smoking Status: Current Every Day Smoker (1 pack per day) Substance Use Type: Marijuana - Medications Home Medications: Home Medications Medication Instructions Recorded Confirmed Last Taken Type ALBUTEROL Inhaler [Proair] 2 puff IH QID PRN 04/22/18 04/22/18 1 Month Ago History ~03/22/18 ED Review of Systems ROS: Stated complaint: SURGICAL SITE PAIN Other details as noted in HPI Constitutional: denies: fever Eyes: denies: eye pain ENT: denies: throat pain Cardiovascular: denies: chest pain Gastrointestinal: abdominal pain, other (positive flatus) Genitourinary: denies: dysuria Musculoskeletal: myalgia. denies: back pain Neurological: denies: headache Physical Exam - Physical Exam Vital Signs: Vital Signs 04/28/18 04/28/18 03:56 04:59 Temperature 98.5 F Pulse Rate 127 H Respiratory 18 20 Rate Blood Pressure 107/68 O2 Sat by Pulse 97 98 Oximetry Physical Exam: GENERAL: The patient is well-developed well-nourished male lying on stretcher not appearing to be in acute distress. [] HEENT: Normocephalic. Atraumatic. Extraocular motions are intact. Patient has moist mucous membranes. NECK: Supple. Trachea midline CHEST/LUNGS: Clear to auscultation. There is no respiratory distress noted. HEART/CARDIOVASCULAR: Regular. There is no tachycardia. There is no gallop rub or murmur. ABDOMEN: Abdomen is soft, with appropriate postop tenderness. Patient has normal bowel sounds. There is no abdominal distention. SKIN: There is some rubor to the left forearm surrounding his previous IV site. There is some tenderness to palpation. NEURO: The patient is awake, alert, and oriented. The patient is cooperative. The patient has normal speech MUSCULOSKELETAL: There is no evidence of acute injury. ED Course Vital Signs 04/28/18 04/28/18 03:56 04:59 Temperature 98.5 F Pulse Rate 127 H Respiratory 18 20 Rate Blood Pressure 107/68 O2 Sat by Pulse 97 98 Oximetry - Consultations Consultation #1: 04/28/18 07:[address] Lindsey. States the patient was scheduled to receive an abdominal series this morning and requests one be performed in the ED. States will admit the patient ED Medical Decision Making - Lab Data Result diagrams: 04/28/18 04:46 04/28/18 04:46 Laboratory Tests 04/28/18 04/28/18 04:46 04:46 WBC 11.0 RBC 4.42 Hgb 14.0 Hct 41.2 MCV 93 MCH 32 MCHC 34 RDW 12.4 L Plt Count 270 Lymph % (Auto) 14.3 [place] % (Auto) 10.0 H Eos % (Auto) 0.9 Baso % (Auto) 0.7 Lymph # 1.6 [place] # 1.1 H Eos # 0.1 Baso # 0.1 Seg Neutrophils % 74.1 H Seg Neutrophils # 8.2 H Sodium 139 Potassium 4.2 Chloride 100.3 Carbon Dioxide 26 Anion Gap 17 BUN 19 Creatinine 0.9 Estimated GFR > 60 BUN/Creatinine Ratio 21 Glucose 96 Calcium 9.6 Total Bilirubin 0.60 AST 23 ALT 10 Alkaline Phosphatase 52 Total Protein 7.7 Albumin 4.3 Albumin/Globulin Ratio 1.3 - Radiology Data Radiology results: image reviewed (abdominal x-ray 2 view) interpreted by me: Abdominal x-ray 2 view-nonspecific bowel gas pattern. - Differential Diagnosis postop abdominal pain Critical care attestation.: If time is entered above; I have spent that time in minutes in the direct care of this critically ill patient, excluding procedure time. ED Disposition Clinical Impression: Postoperative abdominal pain, Superficial thrombophlebitis of left upper extremity Disposition: OP ADMIT IP TO THIS HOSP Is pt being admited?: Yes Does the pt Need Aspirin: No Condition: Fair Referrals: PRIMARY CARE,MD [Primary Care Provider] - 3-5 Days Time of Disposition: 07:19 (Dr Rosalia gerber)
[2018-04-28] MEDS ORDERED: NACL 0.9% 1000 ML 1,000 ML IV SCH (08:00)
--- NOTE | 2018-04-28 08:20 | XRay Report ---
ABDOMEN RADIOGRAPHS INDICATION: Postop abdominal pain. COMPARISON: 04/22/2018 CT. FINDINGS: Supine and upright abdominal radiographs demonstrate nonobstructive bowel gas pattern without focal suspicious calcifications, pneumatosis or pneumoperitoneum. Ascending colon stool. Midline abdominal skin virgie. Clear visualized lung bases. Slight spinal curvature, possibly positional versus scoliosis. CONCLUSION: Nonobstructive bowel gas pattern, as described. Thank you for the opportunity to participate in this patient's care.
--- NOTE | 2018-04-28 13:38 | Progress Note ---
Assessment and Plan Pt signed out AMA at 1 am today. returned secondary to abd pain. + flatus Abd soft, non tender. incision clean and dry abd series - wnl begin cl liq diet today advance to reg diet in am if clears amy throughout the day and probable d/c in pm if solids amy Objective Vital Signs - 12hr 04/28/18 04/28/18 04/28/18 03:56 04:59 06:58 Temperature 98.5 F Pulse Rate 127 H 93 H Respiratory 18 20 13 Rate Blood Pressure 107/68 O2 Sat by Pulse 97 98 Oximetry 04/28/18 04/28/18 04/28/18 07:00 07:02 07:04 Temperature Pulse Rate 84 79 80 Respiratory 12 12 18 Rate Blood Pressure O2 Sat by Pulse Oximetry 04/28/18 04/28/18 04/28/18 07:06 07:08 07:10 Temperature Pulse Rate 97 H 85 81 Respiratory 16 32 H 26 H Rate Blood Pressure 108/62 O2 Sat by Pulse 100 96 Oximetry 04/28/18 04/28/18 04/28/18 07:26 07:28 07:30 Temperature Pulse Rate 76 67 72 Respiratory 22 20 19 Rate Blood Pressure 108/62 108/62 97/64 O2 Sat by Pulse 100 100 99 Oximetry 04/28/18 04/28/18 04/28/18 07:32 07:34 07:36 Temperature Pulse Rate 79 80 79 Respiratory 22 25 H 36 H Rate Blood Pressure 97/64 97/64 97/64 O2 Sat by Pulse 98 99 98 Oximetry 04/28/18 04/28/18 04/28/18 07:37 07:50 07:52 Temperature Pulse Rate 80 Respiratory 34 H Rate Blood Pressure 97/64 97/64 97/64 O2 Sat by Pulse 97 100 Oximetry 04/28/18 04/28/18 04/28/18 07:54 07:56 07:58 Temperature Pulse Rate 79 Respiratory 12 Rate Blood Pressure 97/64 97/64 99/72 O2 Sat by Pulse 100 100 100 Oximetry 04/28/18 04/28/18 04/28/18 08:00 08:02 08:04 Temperature Pulse Rate 75 74 72 Respiratory 13 13 11 L Rate Blood Pressure 119/77 119/77 119/77 O2 Sat by Pulse 99 100 99 Oximetry 04/28/18 04/28/18 04/28/18 08:06 08:08 08:10 Temperature Pulse Rate 74 85 73 Respiratory 13 15 13 Rate Blood Pressure 119/77 119/77 119/77 O2 Sat by Pulse 100 100 95 Oximetry 04/28/18 04/28/18 04/28/18 08:12 08:14 08:16 Temperature Pulse Rate 72 75 77 Respiratory 12 15 16 Rate Blood Pressure 97/64 97/64 97/64 O2 Sat by Pulse 100 99 99 Oximetry 04/28/18 04/28/18 04/28/18 08:18 08:20 08:22 Temperature Pulse Rate 81 88 73 Respiratory 16 13 14 Rate Blood Pressure 97/64 97/64 97/64 O2 Sat by Pulse 98 100 99 Oximetry 04/28/18 04/28/18 04/28/18 08:24 08:26 08:28 Temperature Pulse Rate 87 83 83 Respiratory 13 13 13 Rate Blood Pressure 97/64 97/64 97/64 O2 Sat by Pulse 100 98 100 Oximetry 04/28/18 04/28/18 04/28/18 08:30 08:31 08:32 Temperature Pulse Rate 82 98 H 80 Respiratory 12 15 11 L Rate Blood Pressure 97/64 106/59 106/59 O2 Sat by Pulse 100 100 96 Oximetry 04/28/18 04/28/18 04/28/18 08:34 08:36 08:38 Temperature Pulse Rate 80 80 79 Respiratory 11 L 11 L 11 L Rate Blood Pressure 106/59 106/59 106/59 O2 Sat by Pulse 99 99 Oximetry 04/28/18 04/28/18 04/28/18 08:40 08:42 08:44 Temperature Pulse Rate 78 85 84 Respiratory 17 15 14 Rate Blood Pressure 106/59 106/59 106/59 O2 Sat by Pulse 100 97 99 Oximetry 04/28/18 04/28/18 04/28/18 08:46 08:48 08:50 Temperature Pulse Rate 81 81 85 Respiratory 14 14 16 Rate Blood Pressure 106/59 106/59 106/59 O2 Sat by Pulse 99 98 98 Oximetry 04/28/18 04/28/18 04/28/18 08:52 08:54 08:56 Temperature Pulse Rate 82 83 82 Respiratory 14 14 13 Rate Blood Pressure 106/59 106/59 106/59 O2 Sat by Pulse 99 100 95 Oximetry 04/28/18 04/28/18 04/28/18 08:58 09:00 09:01 Temperature Pulse Rate 84 78 75 Respiratory 11 L 13 11 L Rate Blood Pressure 106/59 106/59 113/48 O2 Sat by Pulse 97 99 100 Oximetry 04/28/18 04/28/18 04/28/18 09:02 09:04 09:06 Temperature Pulse Rate 74 76 78 Respiratory 15 13 12 Rate Blood Pressure 113/48 113/48 113/48 O2 Sat by Pulse 99 99 96 Oximetry 04/28/18 04/28/18 04/28/18 09:08 09:10 09:24 Temperature Pulse Rate 77 73 94 H Respiratory 13 14 23 Rate Blood Pressure 113/48 113/48 106/59 O2 Sat by Pulse 97 99 100 Oximetry 04/28/18 04/28/18 04/28/18 09:26 09:28 09:30 Temperature Pulse Rate 69 83 73 Respiratory 11 L 14 12 Rate Blood Pressure 106/59 106/59 121/69 O2 Sat by Pulse 98 97 99 Oximetry 04/28/18 04/28/18 04/28/18 09:32 09:34 09:36 Temperature Pulse Rate 77 87 75 Respiratory 13 17 15 Rate Blood Pressure 121/69 121/69 121/69 O2 Sat by Pulse 98 99 100 Oximetry 04/28/18 04/28/18 04/28/18 09:38 09:40 09:42 Temperature Pulse Rate 76 77 75 Respiratory 13 11 L 13 Rate Blood Pressure 121/69 121/69 121/69 O2 Sat by Pulse 99 99 99 Oximetry 04/28/18 04/28/18 04/28/18 09:44 09:46 09:48 Temperature Pulse Rate 73 74 76 Respiratory 14 15 14 Rate Blood Pressure 113/48 113/48 113/48 O2 Sat by Pulse 98 98 99 Oximetry 04/28/18 04/28/18 04/28/18 09:50 09:52 09:54 Temperature Pulse Rate 82 67 79 Respiratory 15 12 15 Rate Blood Pressure 113/48 113/48 113/48 O2 Sat by Pulse 100 99 99 Oximetry 04/28/18 04/28/18 04/28/18 09:56 09:58 10:00 Temperature Pulse Rate 76 74 68 Respiratory 15 15 13 Rate Blood Pressure 113/48 113/48 109/66 O2 Sat by Pulse 99 100 99 Oximetry 04/28/18 04/28/18 04/28/18 10:02 10:04 10:06 Temperature Pulse Rate 74 81 73 Respiratory 17 18 15 Rate Blood Pressure 109/66 109/66 109/66 O2 Sat by Pulse 98 99 99 Oximetry 04/28/18 04/28/18 04/28/18 10:08 10:10 10:12 Temperature Pulse Rate 75 78 94 H Respiratory 14 17 14 Rate Blood Pressure 109/66 109/66 109/66 O2 Sat by Pulse 99 100 100 Oximetry 04/28/18 04/28/18 04/28/18 10:14 10:16 10:18 Temperature Pulse Rate 67 64 76 Respiratory 13 14 15 Rate Blood Pressure 109/66 121/69 121/69 O2 Sat by Pulse 98 99 98 Oximetry 04/28/18 04/28/18 04/28/18 10:20 10:22 10:24 Temperature Pulse Rate 83 70 69 Respiratory 17 23 12 Rate Blood Pressure 121/69 121/69 121/69 O2 Sat by Pulse 100 100 99 Oximetry 04/28/18 04/28/18 04/28/18 10:26 10:28 10:30 Temperature Pulse Rate 63 72 70 Respiratory 12 13 13 Rate Blood Pressure 121/69 121/69 95/46 O2 Sat by Pulse 98 99 99 Oximetry 04/28/18 04/28/18 04/28/18 10:31 10:32 10:34 Temperature Pulse Rate 71 69 75 Respiratory 13 13 13 Rate Blood Pressure 95/46 95/46 95/46 O2 Sat by Pulse 99 99 99 Oximetry 04/28/18 04/28/18 04/28/18 10:36 10:38 10:40 Temperature Pulse Rate 76 75 80 Respiratory 14 14 15 Rate Blood Pressure 95/46 95/46 95/46 O2 Sat by Pulse 99 99 99 Oximetry 04/28/18 04/28/18 04/28/18 10:42 10:44 10:46 Temperature Pulse Rate 75 74 74 Respiratory 14 14 14 Rate Blood Pressure 95/46 95/46 95/46 O2 Sat by Pulse 98 99 98 Oximetry 04/28/18 04/28/18 04/28/18 10:48 10:50 10:52 Temperature Pulse Rate 73 71 75 Respiratory 13 14 13 Rate Blood Pressure 95/46 95/46 95/46 O2 Sat by Pulse 99 98 98 Oximetry 04/28/18 04/28/18 04/28/18 10:54 10:56 10:58 Temperature Pulse Rate 104 H 72 69 Respiratory 18 18 16 Rate Blood Pressure 95/46 95/46 95/46 O2 Sat by Pulse 99 100 100 Oximetry 04/28/18 04/28/18 11:00 11:48 Temperature 98.3 F Pulse Rate 75 89 Respiratory 11 L 19 Rate Blood Pressure 96/54 110/67 O2 Sat by Pulse 100 100 Oximetry - Labs 04/28/18 04:46 04/28/18 04:46 Diabetes panel 04/28/18 Range/Units 04:46 Sodium 139 (137-145) mmol/L Potassium 4.2 (3.6-5.0) mmol/L Chloride 100.3 (98-107) mmol/L Carbon Dioxide 26 (22-30) mmol/L BUN 19 (9-20) mg/dL Creatinine 0.9 (0.8-1.5) mg/dL Glucose 96 (75-100) mg/dL Calcium 9.6 (8.4-10.2) mg/dL AST 23 (5-40) units/L ALT 10 (7-56) units/L Alkaline Phosphatase 52 (35-129) units/L Total Protein 7.7 (6.3-8.2) g/dL Albumin 4.3 (3.9-5) g/dL Calcium panel 04/28/18 Range/Units 04:46 Calcium 9.6 (8.4-10.2) mg/dL Albumin 4.3 (3.9-5) g/dL Pituitary panel 04/28/18 Range/Units 04:46 Sodium 139 (137-145) mmol/L Potassium 4.2 (3.6-5.0) mmol/L Chloride 100.3 (98-107) mmol/L Carbon Dioxide 26 (22-30) mmol/L BUN 19 (9-20) mg/dL Creatinine 0.9 (0.8-1.5) mg/dL Glucose 96 (75-100) mg/dL Calcium 9.6 (8.4-10.2) mg/dL Adrenal panel 04/28/18 Range/Units 04:46 Sodium 139 (137-145) mmol/L Potassium 4.2 (3.6-5.0) mmol/L Chloride 100.3 (98-107) mmol/L Carbon Dioxide 26 (22-30) mmol/L BUN 19 (9-20) mg/dL Creatinine 0.9 (0.8-1.5) mg/dL Glucose 96 (75-100) mg/dL Calcium 9.6 (8.4-10.2) mg/dL Total Bilirubin 0.60 (0.1-1.2) mg/dL AST 23 (5-40) units/L ALT 10 (7-56) units/L Alkaline Phosphatase 52 (35-129) units/L Total Protein 7.7 (6.3-8.2) g/dL Albumin 4.3 (3.9-5) g/dL
[2018-04-28 16:40] VITALS: BP 98/74
== END 2018-04-28 16:45 | disposition left against medical advice (07) | DRG 948 ==
LOC: ED 03:50 → 3A 10:12
PROVIDERS: ADMIT Surgery; ATTEND Surgery
DX: G89.18 Other acute postprocedural pain (principal); J45.909 Unspecified asthma, uncomplicated; F17.200 Nicotine dependence, unspecified, uncomplicated; F12.90 Cannabis use, unspecified, uncomplicated; R10.9 Unspecified abdominal pain; I80.8 Phlebitis and thrombophlebitis of other sites; Z53.21 Procedure and treatment not carried out due to patient leaving prior to being seen by health care provider
CPT/HCPCS: 36415; 74019; 80053; 85025; 96361; 96374; J2405; J3010; J7030